=== PATIENT | male | born 1985 ===

== ENCOUNTER 2023-09-03 12:00 | Inpatient (IN) | payer OTHER, SELFPAY ==
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
--- NOTE | ~2023-09-03 | MR_ITS ---
EXAMINATION: MRI LOWER LEG WITHOUT AND WITH CONTRAST, LEFT CLINICAL INFORMATION: Evaluate for tibial osteomyelitis COMPARISON: Radiographs 09/03/2023 TECHNIQUE: MRI without and with intravenous administration of 7.5 mL of Gadavist is performed on the left lower leg FINDINGS: The intramedullary nail of the tibia obscures visualization of the immediately adjacent bone. However, no evidence to indicate infection along the portions of the tibia which are visualized. The comminuted tibial diaphysis fracture is predominantly healed. No soft tissue fluid collection. There is minimal, if any, osseous bridging of the mid shaft fibular fracture. MR/MR lower leg LT wo/w con IMPRESSION: Technically limited study with no convincing evidence of infection/osteomyelitis. If strong clinical suspicion persists, a bone scan-gallium subtraction study could be considered.
--- NOTE | ~2023-09-03 | XR_ITS ---
EXAMINATION: XR TIBIA AND FIBULA, LEFT CLINICAL INFORMATION: Sclerosis and lucency through the tibia and around the hardware. OB difficult to exclude osteomyelitis on this study. There are no previous to compare. COMPARISON: None available. TECHNIQUE: 3 views submitted. Findings; Hardware in the tibia with deformity of the tibia and fibula. Cannot exclude nonunion needs fibular shaft with lateral angulation fracture apex. No acute fracture. XR/XR tibia fibula LT 2V IMPRESSION: Limited exam. There are no films to compare here. Hardware in the tibia with surrounding sclerosis and lucency. Etiology is indeterminate. Underlying osteomyelitis cannot be excluded. Recommend previous become available they be compared and an addendum will be dictated. Difficult to rule out a bony process on this single study. Osteomyelitis cannot be excluded. Correlation recommended clinically. Recommend bone scan or MRI for follow-up Findings suggest nonunion mid fibular shaft but again correlation needs to be made here.
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
[2023-09-03 12:14] VITALS: BP 117/85; PULSE 80; RESP 17; TEMP 37.1; O2SAT 97; BMI 24.6
[2023-09-03 13:16] LABS: MANUAL DIFF FLAG NO
[2023-09-03 13:18] LABS: Eosinophils Percent Auto 0.5 % (0-4); Hematocrit 30.9 % (42.0-52.0); Hemoglobin 9.6 g/dl (14.0-18.0); Imm Gran Abs Auto 0.02 X10*3/uL (0.00-0.03); Imm Gran Pct Auto 0.5 % (0.0-0.4); Lymphocytes Percent Auto 23.6 % (20-40); Mean Corpuscular HGB Conc 31.1 g/dl (31.0-36.0); Mean Corpuscular Hemoglobin 27.4 pg (27.0-33.0); Mean Platelet Volume 8.4 fL (9.4-12.4); Monocytes Absolute Auto 0.3 X10*3/uL (0.1-1.2); Monocytes Percent Auto 8.2 % (2-11); Neutrophils Absolute Auto 2.8 x10*3/uL (2.0-8.3); Neutrophils Percent Auto 67.2 % (45-73); Platelet Count 370 X10*3/uL (160-400); Red Blood Count 3.51 X10*6/uL (4.60-5.80); Red Cell Distribution Width 14.3 % (11.0-16.0); White Blood Count 4.2 X10*3/uL (4.8-10.8)
[2023-09-03 13:25] LABS: INTERNATIONAL NORM RATIO 1.1 (0.9-1.1); Prothrombin Time 12.8 SEC (11.1-13.3)
[2023-09-03 13:28] LABS: Lactic Acid 0.9 mmol/L (0.5-2.0)
[2023-09-03 13:32] LABS: Alanine Aminotransferase 16 U/L (0-40); Albumin Level 4.4 g/dL (3.5-5.0); Alkaline Phosphatase 108 U/L (39-117); Anion Gap 16 (12-20); Aspartate Amino Transferase 45 U/L (5-37); Bilirubin Direct 0.3 mg/dL (0.0-0.5); Bilirubin Total 0.8 mg/dL (0.0-1.0); Blood Urea Nitrogen 11 mg/dL (9-16); C Reactive Protein 8.72 mg/dL (< or = 0.50); Calcium 9.5 mg/dL (8.4-10.2); Carbon Dioxide 29 mmol/L (22-29); Chloride 100 mmol/L (96-108); Creatinine Clr Calc Pharmacy 122.3; Estimated Glomerular Filt Rate > 60; Glucose Random 101 mg/dL (60-115); Potassium 3.9 mmol/L (3.3-5.1); Sodium 141 mmol/L (135-145); Total Protein 8.6 g/dL (6.5-8.0)
[2023-09-03 14:09] LABS: Erythrocyte Sedimentation Rate 50 MM/HR (0-15)
--- NOTE | 2023-09-03 18:36 | PC.NURSE ---
pt a&o, micronesian speaking only. wound to left lower extremity with purulent drainage. blood cultures x2 obtained and sent. 20G IV placed to LAC. pt resting quietly on stretcher. call norman within reach. rr even/unlabored. plan of care ongoing.
[2023-09-03] MEDS: vancomycin HCL 1,000 MG, vancomycin HCL 750 MG in 0.9 % Sodium Chloride 500 ML 267.5 MG IV (19:30)
[2023-09-03 19:31] VITALS: BP 124/79; PULSE 75; RESP 18; TEMP 36.6; O2SAT 100
[2023-09-03 20:00] VITALS: BP 124/79; PULSE 73; RESP 18; O2SAT 100
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
--- NOTE | 2023-09-03 21:49 | PHA.PROG ---
Admission Date/Time: Indication: Bone&Joint Weight in k.3 kg Adjusted body weight in K.36 kg [place] body weight in K.4 kg Obesity Dosing Indication % IBW: 107% Serum Creatinine - Last 168 Hours 09/03/23 13:12 Creatinine 0.80 Estimated CrCl and GFR - Last 168 Hours 09/03/23 13:12 Estim Creat Clear Calc 122.3 Estimated GFR > 60 Vancomycin Loading Dose: 1750 mg Current Vancomycin Dosing Regimen: 1250 mg Q12H Date and Time for next Vancomycin Level to be drawn: 09/05 @ 0600 Pharmacist Comments on Vancomycin Plan: patient receive load dose vanco 1750 mg in the ER on 09/03 @ 1930 maintenance dose vancomycin 1250 mg Q12H is schedule to start on 09/04 @ 0800. Predicted AUC 516 with a trough of 15 level will be drawn prior to 4th dose pharamcy will monitor renal function daily Radha Fishman PharmD Vancomycin dosing will take advantage of [employer] as a clinical decision support tool that uses Bayesian modeling to calculate individual patient's pharmacokinetic parameters and forecast the patient's drug concentration time course with the target goal AUC 24 range of 400 - 600 mg/L/hr.
--- NOTE | 2023-09-03 22:03 | PHA.MEDREC ---
Pharmacy Consult ? Medication Reconciliation Pharmacy has completed the medication reconciliation. Patient reports he ONLY takes ibuprophen at home.
[2023-09-03] MEDS: 0.9 % Sodium Chloride 1,000 ML 100 ML IVCONT (22:05)
[2023-09-04 06:16] LABS: Immature Retic Fraction 26.7 % (2.3-13.4); Reticulocyte Percent 4.1 % (0.5-1.8); Reticulocytes Absolute 0.129 X10*6/uL (0.026-0.095)
[2023-09-04 06:31] LABS: Creatinine Clr Calc Pharmacy 139.7; Estimated Glomerular Filt Rate > 60; Iron 52 mcg/dL (45-160); Percent Iron Saturation 20 % (15-50); Total Iron Binding Capacity 258 mcg/dL (228-428); Unsaturated Iron Binding 206 ug/dL
[2023-09-04 07:08] LABS: Folate 10.8 ng/mL (> or = 4.0); Vitamin B12 213 pg/mL (200-900)
--- NOTE | 2023-09-04 07:36 | PC.NURSE ---
Pt given meal tray, resting comfortably on stretcher at this time with respirations equal/unlabored.
[2023-09-04 08:21] VITALS: BP 114/55; PULSE 70; RESP 20; TEMP 36.7; O2SAT 99
[2023-09-04] MEDS: 0.9 % Sodium Chloride 1,000 ML 100 ML IVCONT (09:20)
[2023-09-04] MEDS: 0.9 % Sodium Chloride Flush 3 ML SYRINGE IVFLUSH (09:20)
[2023-09-04 09:48] LABS: HBS Num1 5.12 mIU/mL (0-7.99); HBc Num1 0.67 S/CO (0.00-0.79); HBsAGNum1 0.35 S/CO (0.00-0.99); HIV AB/AG Nonreactive (Nonreactive); HIV Num 1 0.09 S/CO (0.00-0.99); Hepatitis A Antibody IgM 0.26 Index (0-0.79); Hepatitis B Core Antibody Nonreactive (Nonreactive); Hepatitis B Surface Antigen Negative (Negative); ~Hepatitis A Antibody IgM Nonreactive (Nonreactive); ~Hepatitis B Surface Antibody NONREACTIVE (Nonreactive)
[2023-09-04 10:09] LABS: ~HepC Num1 0.37 S/CO (0.00-0.79); ~Hepatitis C Antibody Nonreactive (Nonreactive)
[2023-09-04 10:20] VITALS: BMI 24.6
[2023-09-04] MEDS: Heparin Sodium,Porcine 5,000 UNIT/ML VIAL 5000 UNIT SUBCUT ×2 (10:33→17:38)
[2023-09-04] MEDS: vancomycin HCL 1,250 MG in 0.9 % Sodium Chloride 250 ML 166.67 MG IV (10:33)
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
[2023-09-04] MEDS: gadobutroL 7.5 ML VIAL IVPUSH (13:58)
--- NOTE | 2023-09-04 14:09 | MHC.CM.PN ---
Male 38 DX L Tibia Osteomyelitis He lives with his cousin, Adore. He uses a cane. He is independent with ADLs. [facility], and [facility] PCP brochure have been given to the patient. A new HCP has been documented. [facility] home self care vs [facility]. A referral has been sent at patients request. Patient will arrange for transportation home.
[2023-09-04 14:25] VITALS: BP 126/65; PULSE 79; RESP 18; TEMP 36.8; O2SAT 92
[2023-09-04 15:24] VITALS: BP 130/72; PULSE 82; RESP 18; TEMP 36.8; O2SAT 100
[2023-09-04 19:18] VITALS: BP 113/57; PULSE 72; RESP 18; TEMP 36.9; O2SAT 98
[2023-09-04] MEDS: vancomycin HCL 1,250 MG in 0.9 % Sodium Chloride 250 ML 166.66 MG IV (20:00)
[2023-09-05] MEDS: Heparin Sodium,Porcine 5,000 UNIT/ML VIAL 5000 UNIT SUBCUT ×3 (00:26→16:42)
[2023-09-05 03:43] VITALS: BP 113/61; PULSE 56; RESP 16; TEMP 36.4; O2SAT 95
[2023-09-05 05:29] LABS: Hemoglobin 8.9 g/dl (14.0-18.0); Mean Corpuscular HGB Conc 31.8 g/dl (31.0-36.0); Mean Corpuscular Hemoglobin 27.7 pg (27.0-33.0); Mean Corpuscular Volume 87.2 fL (80.0-98.0); Mean Platelet Volume 8.4 fL (9.4-12.4); Platelet Count 332 X10*3/uL (160-400); Red Blood Count 3.21 X10*6/uL (4.60-5.80); Red Cell Distribution Width 14.3 % (11.0-16.0)
[2023-09-05 05:51] LABS: Vancomycin Trough 11.4 mcg/mL (10.0-20.0)
[2023-09-05 05:54] LABS: Anion Gap 13 (12-20); Blood Urea Nitrogen 9 mg/dL (9-16); Calcium 8.8 mg/dL (8.4-10.2); Carbon Dioxide 24 mmol/L (22-29); Chloride 105 mmol/L (96-108); Estimated Glomerular Filt Rate > 60; Glucose Random 94 mg/dL (60-115); Sodium 138 mmol/L (135-145)
[2023-09-05 06:07] LABS: C Reactive Protein 3.93 mg/dL (< or = 0.50); Creatinine Clr Calc Pharmacy 135.9; Estimated Glomerular Filt Rate > 60
--- NOTE | 2023-09-05 06:34 | HE.PHANOTE ---
Addendum entered by Adarsh [facility] 09/05/23 15:36: CHANGED TO 1000 Q 8H. NEXT TROUGH 09/06 @ 1100 Original Note: RE: VANCO DOSING Based on trough of 11.4 mg/L, sCr of 0.72 and CrCl of 135.9 and indication of bone and joint, dose was increased to 1750 mg q12h with predicted AUC of 574 mg/L.hr and trough of 14.8 mg/L. Nex random is scheduled for 09/06/22 @0600.
[2023-09-05 07:34] VITALS: BP 118/62; PULSE 60; RESP 18; TEMP 36.6; O2SAT 98
[2023-09-05] MEDS: vancomycin HCL 1,000 MG, vancomycin HCL 750 MG in 0.9 % Sodium Chloride 500 ML 267.5 MG IV (08:40)
[2023-09-05] MEDS: 0.9 % Sodium Chloride Flush 3 ML SYRINGE IVFLUSH ×3 (08:44→20:14)
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
--- NOTE | 2023-09-05 13:56 | MHC.CM.PN ---
[facility]
[2023-09-05 15:27] VITALS: BP 130/73; PULSE 67; RESP 18; TEMP 36.6; O2SAT 99
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
[2023-09-05 19:39] VITALS: BP 133/63; PULSE 75; RESP 16; TEMP 36.6; O2SAT 98
[2023-09-05] MEDS: vancomycin HCL 1,000 MG in 0.9 % Sodium Chloride 250 ML 270 MG IV (20:13)
[2023-09-06] MEDS: Heparin Sodium,Porcine 5,000 UNIT/ML VIAL 5000 UNIT SUBCUT ×3 (00:32→16:16)
[2023-09-06 03:16] VITALS: BP 125/63; PULSE 58; RESP 14; TEMP 37.1; O2SAT 97
--- NOTE | 2023-09-06 06:13 | PC.NURSE ---
contacted overnight pharmacy regarding vanco trough orders and dosing schedule. Overnight PHA unsure what to do with orders, stating MD should be contacted. Contacted hospitlaist via [employer]. Patient had am Vanco trough yesterday 09/05, then received two doses Vanco. Patient had 0500 Vanco due, however is scheduled for two Vanco trough at 0600 and 1100. MD read message but no response. At this time, trough has been drawn, med held pending result.
[2023-09-06 06:45] LABS: Creatinine Clr Calc Pharmacy 135.9; Estimated Glomerular Filt Rate > 60
[2023-09-06 06:50] LABS: Vancomycin Random 8.6 mcg/mL (15-20)
[2023-09-06 07:10] VITALS: BP 120/76; PULSE 57; RESP 18; TEMP 36.9; O2SAT 99
[2023-09-06] MEDS: vancomycin HCL 1,000 MG in 0.9 % Sodium Chloride 250 ML 270 MG IV (08:18)
[2023-09-06] MEDS: 0.9 % Sodium Chloride Flush 3 ML SYRINGE IVFLUSH ×2 (08:18→16:15)
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
--- NOTE | 2023-09-06 14:48 | MHC.CM.PN ---
PLAN IS FOR PICC LINE INSERTION AND 6 WEEKS OF IV ABX. PATIENT HAS NO PCP STR [facility] (CONTRACTED FACILITIES) CASE MANAGEMENT FOLLOWING FOR ANY OFFERS AND DISCUSSION WITH PATIENT WITH ASSIST OF TEST ARCHITECT SERVICES.
[2023-09-06 15:26] LABS: Vancomycin Random 11.6 mcg/mL (15-20)
--- NOTE | 2023-09-06 15:41 | HE.PHANOTE ---
RE VANCO DOSING TROUGH STILL LOW AT 11.6 BUT RENAL FUNCTION HOLDING GOOD WITH SCR 0.72. WILL INCREASE DOSE TO 1250 Q8 TO ATTEMPT TO INCREASE AUC TO 551 WITH TROUGH 15.
[2023-09-06 15:56] VITALS: BP 122/71; PULSE 76; RESP 18; TEMP 36.4; O2SAT 97
[2023-09-06] MEDS: vancomycin HCL 1,250 MG in 0.9 % Sodium Chloride 250 ML 166.67 MG IV (16:15)
[2023-09-06 20:00] VITALS: BP 121/71; PULSE 68; RESP 16; TEMP 36.4; O2SAT 99
[2023-09-07] MEDS: vancomycin HCL 1,250 MG in 0.9 % Sodium Chloride 250 ML 166.67 MG IV
[2023-09-07] MEDS: 0.9 % Sodium Chloride Flush 3 ML SYRINGE IVFLUSH ×3 (00:01→14:59)
[2023-09-07] MEDS: Heparin Sodium,Porcine 5,000 UNIT/ML VIAL 5000 UNIT SUBCUT ×3 (00:04→17:24)
[2023-09-07 03:42] VITALS: BP 124/77; PULSE 59; RESP 16; TEMP 36.4; O2SAT 100
[2023-09-07 06:55] LABS: Creatinine Clr Calc Pharmacy 125.4; Estimated Glomerular Filt Rate > 60
[2023-09-07 07:33] VITALS: BP 122/76; PULSE 68; RESP 14; TEMP 36.5; O2SAT 100
[2023-09-07] MEDS: vancomycin HCL 1,250 MG in 0.9 % Sodium Chloride 250 ML 166.66 MG IV (08:09)
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
[2023-09-07 14:13] LABS: Vancomycin Random 18.4 mcg/mL (15-20)
--- NOTE | 2023-09-07 14:26 | HE.PHANOTE ---
RE JOSELINE CHANGE DOSE BACK TO 1000 Q8. THIS MAY BE OKAY NOW THAT PATIENT IS WITHIN THERAPEUTIC RANGE. HE SHOULD BE AROUND 14.5 PER INSIGHT BUT IS ACTUALLY AT 18.4 TODAY. CONCERN FOR PATIENT BEING SUPRATHERAPEUTIC CAUSING ME TO DECREASE DOSE AT THIS TIME. RENAL FUNCTION STILL STABLE WITH SCR 0.78.
[2023-09-07] MEDS: vancomycin HCL 1,000 MG in 0.9 % Sodium Chloride 250 ML 270 MG IV ×2 (15:00→22:35)
[2023-09-07 15:04] VITALS: BP 130/74; PULSE 74; RESP 16; TEMP 36.4; O2SAT 99
[2023-09-07 19:21] VITALS: BP 122/73; PULSE 75; RESP 18; TEMP 36.8; O2SAT 98
[2023-09-08] MEDS: 0.9 % Sodium Chloride Flush 3 ML SYRINGE IVFLUSH ×4 (00:19→23:05)
[2023-09-08] MEDS: Heparin Sodium,Porcine 5,000 UNIT/ML VIAL 5000 UNIT SUBCUT ×3 (00:39→17:44)
[2023-09-08 03:51] VITALS: BP 136/75; PULSE 58; RESP 16; TEMP 36.4; O2SAT 98
[2023-09-08] MEDS: vancomycin HCL 1,000 MG in 0.9 % Sodium Chloride 250 ML 270 MG IV ×3 (06:14→23:05)
[2023-09-08 06:18] LABS: Creatinine Clr Calc Pharmacy 132.2; Estimated Glomerular Filt Rate > 60
[2023-09-08 07:24] VITALS: BP 122/68; PULSE 68; RESP 16; TEMP 36.7; O2SAT 99
[2023-09-08 09:27] VITALS: BP 129/74; PULSE 58; RESP 18; TEMP 36.4; O2SAT 100
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
--- NOTE | 2023-09-08 09:47 | P.CDIM_ITS ---
PROVIDER RESPONSE TEXT: To clarify, the appropriate diagnosis supported by the clinical indicators: Acute on chronic osteomyelitis of left Tibial with draining sinuses QUERY TEXT: PHYSICIAN'S DOCUMENTATION REQUEST Date of Query: 09/05/2023 07:23 AM EST Patient Name: Amando Haynes Admit Date: 09/04/2023 Dear Radha Mauricio, A review of the medical record indicates additional documentation may be needed. Please review below and update the documentation accordingly. Clinical Indicators: Progress note dated 09/04 - Plan - #left tibial osteomyelitis with cellulitis and draining sinuses. IV antibiotic therapy IV fluids Pain control with Tylenol and/or oxycodone Based on the above, please clarify in the Progress Notes further specificity regarding the acuity of the Osteomyelitis within the body of the Plan: Acute osteomyelitis of left Tibial Chronic osteomyelitis Acute osteomyelitis with draining sinus left Tibial Acute on chronic osteomyelitis of left Tibial with draining sinuses Other (explain) Clinically unable to determine (explain) Thank you, Olimpia Vasques, CCS, CDIS Use of terms such as suspected, likely, concern for, or probable (associated with a specific diagnosi s that is being evaluated, monitored, or treated as if it exists) are acceptable and can be coded in the inpatient se tting, when documented at the time of discharge. Please use your independent medical judgment in providing your response. THIS QUERY IS PART OF THE PERMANENT MEDICAL RECORD
[2023-09-08 13:49] LABS: Transferrin 258 mg/dL (188-341)
[2023-09-08 13:51] LABS: Vancomycin Random 13.9 mcg/mL (15-20)
--- NOTE | 2023-09-08 14:02 | HE.PHANOTE ---
RE: VANCO DOSING Trough came back as 13.9, predicted to be 11.7 (and AUC of 442). Trough of 13.9 would coinside with AUC of 525 which is within therapeutic range. Continue with dose of 1000 mg q8h and schedule next random on 09/09/23 @1300.
--- NOTE | 2023-09-08 14:11 | MHC.CM.PN ---
per rounds pt is ready for dc soraya nix going for auth
[2023-09-08 15:17] VITALS: BP 131/78; PULSE 75; RESP 16; TEMP 37.1; O2SAT 100
--- NOTE | 2023-09-08 15:56 | HO.PICC ---
PICC Line Insertion NPICC Diagnosis: Osteomyelitis Indication: 6wks IV ABT Pertinent Labs: Reviewed Technique: Following informed consent including risks, benefits and alternatives and using sterile technique including cap and mask, sterile gown, glove and drape, the R arm was prepped and draped in the usual sterile fashion of full barrier technique with G. Following completion of [place] Protocol the skin and soft tissues were anesthetized with 1% Lidocaine plain. Using ultrasound guidance, right basilic vein access was obtained. Over an 0.018 wire through peel-away sheath, a 4 FR single Lumen PASV Power PICC line was positioned. Catheter length is 41cm internal length, 0cm external length, for a total trimmed length of 41cm. The procedure was performed in [facility]. Tip verification was performed by Millie Clark with Sherlock 3CG. Tip located in SVC. Ultrasound was used to document vein patency and for needle entry. A formal ultrasound picture and cardiac rhythm strip was recorded. Vascular Supervisor Order Takers has released the line for use and it is currently dressed with a StatLock, Tegaderm, and CHG disc. Verification has been performed for blood return and line patency. Arm Circumference: 28cm Equipment: SeeJay PowerPICC SOLO catheter with Sherlock 3CG Catheter Type: 4FR single lumen PASV PICC Catheter Lot #: [id number]
[2023-09-08 19:43] VITALS: BP 128/77; PULSE 104; RESP 18; TEMP 37.1; O2SAT 98
[2023-09-08] MEDS: Acetaminophen 325 MG TABLET 975 MG PO (19:48)
[2023-09-08] MEDS: 0.9 % Sodium Chloride Flush 10 ML SYRINGE 5 ML IVFLUSH (23:05)
[2023-09-09] MEDS: Heparin Sodium,Porcine 5,000 UNIT/ML VIAL 5000 UNIT SUBCUT ×2 (00:08→08:15)
[2023-09-09 03:29] VITALS: BP 119/73; PULSE 98; RESP 18; TEMP 36.7; O2SAT 98
[2023-09-09] MEDS: vancomycin HCL 1,000 MG in 0.9 % Sodium Chloride 250 ML 270 MG IV (06:21)
[2023-09-09 06:51] LABS: Creatinine Clr Calc Pharmacy 137.8; Estimated Glomerular Filt Rate > 60
[2023-09-09 07:34] VITALS: BP 121/75; PULSE 70; RESP 18; TEMP 36.9; O2SAT 97
[2023-09-09] MEDS: 0.9 % Sodium Chloride Flush 10 ML SYRINGE 5 ML IVFLUSH (07:53)
[2023-09-09] MEDS: 0.9 % Sodium Chloride Flush 3 ML SYRINGE IVFLUSH (07:55)
--- NOTE | 2023-09-09 09:31 | MHC.CM.PN ---
pt to be transferred at 12 today to [facility]
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
[2023-09-09] MEDS: DAPTOmycin 500 MG in 0.9 % Sodium Chloride 50 ML 100 MG IV (11:25)
== END 2023-09-09 12:14 | disposition skilled nursing facility (03) | DRG 349 ==
LOC: HO.ED 21:17 → HO.EDOVER 22:23 → HO.S3 09-04 07:24
PROVIDERS: Physician Assistant; Admitting Provider Internal Medicine; Emergency Provider Internal Medicine; Visit Provider Student in an Organized Health Care Education/Training Program
PROC: 02HV33Z Insertion of Infusion Device into Superior Vena Cava, Percutaneous Approach (ICD-10-PCS; principal; 2023-09-08 08:00)
DX: T84.623A Infection and inflammatory reaction due to internal fixation device of left tibia, initial encounter (principal); M86.162 Other acute osteomyelitis, left tibia and fibula; B95.62 Methicillin resistant Staphylococcus aureus infection as the cause of diseases classified elsewhere; M86.462 Chronic osteomyelitis with draining sinus, left tibia and fibula; D64.9 Anemia, unspecified; Y79.8 Miscellaneous orthopedic devices associated with adverse incidents, not elsewhere classified
CPT/HCPCS: 36415; 36573; 73590; 73720; 78300; 80048; 80076; 80202; 82565; 82607; 82746; 83540; 83605; 84466; 85025; 85027; 85045; 85610; 85652; 86140; 86704; 86706; 86709; 86803; 87040; 87070; 87077; 87186; 87205; 87340; 87389; 99285; A9503; A9585; C1751; J0878; J1644; J3370; J3371

== ENCOUNTER → 2023-09-03 19:32 | Outpatient (BNV) | payer OTHER, SELFPAY | PROVIDERS: Emergency Provider Internal Medicine; Visit Provider Internal Medicine | DX: M86.462 Chronic osteomyelitis with draining sinus, left tibia and fibula (principal); D64.9 Anemia, unspecified | CPT/HCPCS: 99222; 99232; 99233; 99238 ==

== ENCOUNTER → 2023-09-03 21:33 | Outpatient (BNV) | payer OTHER, SELFPAY | PROVIDERS: Admitting Provider Internal Medicine; Emergency Provider Internal Medicine; Visit Provider Internal Medicine | DX: M86.9 Osteomyelitis, unspecified (principal) | CPT/HCPCS: 99222 ==

== ENCOUNTER 2023-10-06 13:58 | Outpatient (AMB) | payer OTHER, SELFPAY ==
[2023-10-06 14:11] VITALS: PULSE 100; TEMP 37.2; O2SAT 99; BMI 24.3
--- NOTE | 2023-10-06 14:11 | A.OFFVIS_ITS ---
Intake Vital Signs 10/06/23 14:11 Height 5 ft 7 in Weight 155 lb BMI 24.3 Pulse 100 Pulse Source Pulse Oximeter Temp 99.0 F Temp Source Oral Pulse Oximetry (%) 99 Intake Visit Reasons: reff list/left tibial osteomylitis Allergies No Known Allergies Allergy (Verified 10/06/23 14:15) HPI reff list/left tibial osteomylitis HPI Details He comes from [facility]. He has chronic OM left tibia He had MRSA wound 09/03 which was resistant to tetracycline and sensitive to Ba ctrim. He was changed from Vancomycin to Daptomycin and is supposed to finish Daptomycin on 10/14. However he declines going back to Rehab and wants line out. He has still some yellowish drainage from wound. [facility] Medical History Anemia Tibia/fibula fracture Surgical History History of surgery on lower extremity Social History Household Members: Family Housing: Apartment Do you presently have visiting nurse or other home services: No Patient Tobacco Use Status: Never used Tobacco Substance Use Type: Marijuana service: No Review of Systems Const All systems reviewed & are unremarkable except as noted in HPI and below Physical Exam Vital Signs: Last Vital Signs Temp 99.0 F 10/06/23 14:11 Pulse 100 10/06/23 14:11 Pulse Ox 99 10/06/23 14:11 BMI result Body Mass Index 24.3 Const General: cooperative Orientation/consciousness: patient oriented x3 HEENT Head: Yes normal to inspection Mouth: Normal oral and palatal mucosa present Eyes General: appearance normal, both eyes and all related structures Pupils: Equal, round and reactive pupils present Resp Effort & Inspection: normal respiratory effort Cardio Rate: regular rate Rhythm: regular rhythm GI Palpation (GI): Soft to palpation and nontender General: Yes no CVA tenderness Back/Spine/Pelvis Back: no CVA tenderness Skin General skin exam: no rashes or lesions noted Neuro General: patient oriented x3 Cranial nerves: Yes CN's II-XII intact bilaterally and Yes Equal, round and reactive pupils present Extrem Other: still some yellow drainage area Psych Appearance: grossly normal Assessment & Plan Assessment & Plan (1) Osteomyelitis of left tibia: Comment: He declines further IV therapy and is not going back to Rehab. Code(s): M86.9 - Osteomyelitis, unspecified Plan: Finish with po Bactrim DS bid for a month and pull PICC line. See in one month and see Wound Care as well. Likely area will have some chronic drainage ongoing. Orders: Orders IR cvc remove any age 0310/06/23 M86.9 - Osteomyelitis, unspecified Coding Level of Care Code Est Pt Level 3 (28434) Diagnoses Chronic osteomyelitis of left tibia with draining sinus M86.9
== END 2023-10-06 15:31 | disposition home or self-care (01) ==
LOC: HO.HID 13:59
PROVIDERS: Visit Provider Internal Medicine
DX: M86.9 Osteomyelitis, unspecified (principal)
CPT/HCPCS: 99213

== ENCOUNTER → 2023-10-06 13:58 | Outpatient (BNVA) | payer OTHER, SELFPAY | PROVIDERS: Visit Provider Internal Medicine | DX: M86.9 Osteomyelitis, unspecified (principal) | CPT/HCPCS: 99212 ==

== ENCOUNTER 2023-10-06 15:08 | Outpatient (REF) | payer OTHER, SELFPAY | END 2023-10-06 15:09 | disposition home or self-care (01) | LOC: HO.RADIR 15:08 | PROVIDERS: Visit Provider Internal Medicine | DX: M86.9 Osteomyelitis, unspecified (principal); Z79.2 Long term (current) use of antibiotics; Z95.9 Presence of cardiac and vascular implant and graft, unspecified | CPT/HCPCS: 99212 ==

== ENCOUNTER 2023-11-10 13:41 | Outpatient (AMB) | payer OTHER, SELFPAY ==
--- NOTE | 2023-11-10 14:08 | A.OFFVIS_ITS ---
Vital Signs 3 11/10/23 14:13 Height 5 ft 7 in Weight 163 lb BMI 25.5 Pulse 120 H Pulse Source Pulse Oximeter Temp 99.2 F Temp Source Oral Pulse Oximetry (%) 98 Oxygen Delivery Method Room Air Intake Visit Reasons: follow up medication/wound Allergies No Known Allergies Allergy (Verified 11/10/23 14:15) HPI HPI follow up medication/wound: Details: He has MRSA OM left tibia. He was supposed to change to po Bactrim 10/05 and quit IV Daptomycin which was supposed to continue until 10/16. He didnt leaf size picker Bactrim because drug store didnt take his insurance. [facility] Medical History Anemia Tibia/fibula fracture Surgical History History of surgery on lower extremity Social History Household Members: Family Housing: Apartment Do you presently have visiting nurse or other home services: No Patient Tobacco Use Status: Never used Tobacco Substance Use Type: Marijuana service: No Review of Systems Const All systems reviewed & are unremarkable except as noted in HPI and below Physical Exam Vital Signs: Last Vital Signs Temp 99.2 F 11/10/23 14:13 Pulse 120 H 11/10/23 14:13 Pulse Ox 98 11/10/23 14:13 Oxygen Delivery Method Room Air 11/10/23 14:13 BMI result Body Mass Index 25.5 Const Other: Extrem Other: leg wound leaking still Assessment & Plan Assessment & Plan (1) Osteomyelitis of left tibia: Comment: He declines further IV therapy and is not going back to Rehab. He didnt take Bactrim either Code(s): M86.9 - Osteomyelitis, unspecified Category: Medical Plan: Po linezolid See after done Medications: New 2 sulfamethoxazole-trimethoprim 800-160 mg (Bactrim DS) 1 tab PO BID 60 tabs 0RF 30 days Discontinued 2 sulfamethoxazole-trimethoprim 800-160 mg (Bactrim DS) Discontinued Reason: Patient no longer taking 1 tab PO BID 30 days 60 tabs 0RF Coding Level of Care Code Est Pt Level 3 (63404) Diagnoses Chronic osteomyelitis of left tibia with draining sinus M86.9
[2023-11-10 14:13] VITALS: PULSE 120; TEMP 37.3; O2SAT 98; BMI 25.5
== END 2023-11-10 14:29 | disposition home or self-care (01) ==
PROVIDERS: Visit Provider Internal Medicine
DX: M86.9 Osteomyelitis, unspecified (principal)
CPT/HCPCS: 99213

== ENCOUNTER → 2023-11-10 13:41 | Outpatient (BNVA) | payer OTHER, SELFPAY | PROVIDERS: Visit Provider Internal Medicine | DX: M86.9 Osteomyelitis, unspecified (principal) | CPT/HCPCS: 99212 ==

== ENCOUNTER 2023-12-10 13:39 | Outpatient (AMB) | payer OTHER, SELFPAY ==
[2023-12-10 14:03] VITALS: PULSE 109; TEMP 36.9; O2SAT 99; BMI 24.3
--- NOTE | 2023-12-10 14:03 | A.OFFVIS_ITS ---
Vital Signs 3 12/10/23 14:03 Height 5 ft 7 in Weight 155 lb BMI 24.3 Pulse 109 H Pulse Source Pulse Oximeter Temp 98.5 F Temp Source Oral Pulse Oximetry (%) 99 Oxygen Delivery Method Room Air Intake Visit Reasons: F/U,1 mth Allergies No Known Allergies Allergy (Verified 12/10/23 14:04) HPI HPI F/U,1 mth: Details: He says leg looks about the same,MRSA left femur. PFSH Medical History Anemia Tibia/fibula fracture Surgical History History of surgery on lower extremity Social History Household Members: Family Housing: Apartment Do you presently have visiting nurse or other home services: No Patient Tobacco Use Status: Never used Tobacco Substance Use Type: Marijuana service: No Review of Systems Const All systems reviewed & are unremarkable except as noted in HPI and below Physical Exam Vital Signs: Last Vital Signs Temp 98.5 F 12/10/23 14:03 Pulse 109 H 12/10/23 14:03 Pulse Ox 99 12/10/23 14:03 Oxygen Delivery Method Room Air 12/10/23 14:03 BMI result Body Mass Index 24.3 Const Other: General: cooperative HEENT Head: Yes normal to inspection Face and sinus: Yes normal facial exam Mouth: Normal oral and palatal mucosa present Teeth and gingiva: dentition normal Eyes General: appearance normal, both eyes and all related structures Pupils: Equal, round and reactive pupils present Resp Effort & Inspection: normal respiratory effort Cardio Rate: regular rate Rhythm: regular rhythm GI Palpation (GI): Soft to palpation and nontender General: Yes no CVA tenderness Back/Spine/Pelvis Back: no CVA tenderness Skin General skin exam: no rashes or lesions noted Neuro General: moves all extremities Cranial nerves: Yes Equal, round and reactive pupils present Extrem General: Yes normal to inspection Psych Appearance: grossly normal Assessment & Plan Assessment & Plan (1) Osteomyelitis of left tibia: Comment: He is taking Bactrim. This is likely lifelong infection. Code(s): M86.9 - Osteomyelitis, unspecified Category: Medical Plan: Preventive Bactrim DS daily. See back folllowup. Medications: New 2 sulfamethoxazole-trimethoprim 800-160 mg (Bactrim DS) 1 tab PO DAILY 30 tabs 3RF 30 days Coding Level of Care Code Est Pt Level 3 (32891) Diagnoses Chronic osteomyelitis of left tibia with draining sinus M86.9
== END 2023-12-10 14:14 | disposition home or self-care (01) ==
LOC: HO.HID 13:39
PROVIDERS: Visit Provider Internal Medicine
DX: M86.9 Osteomyelitis, unspecified (principal)
CPT/HCPCS: 99213

== ENCOUNTER → 2023-12-10 13:39 | Outpatient (BNVA) | payer MEDICAID, OTHER, SELFPAY | PROVIDERS: Visit Provider Internal Medicine | DX: M86.9 Osteomyelitis, unspecified (principal) | CPT/HCPCS: 99212 ==